=== PATIENT | male | born 1980 | race Caucasian/White ===

== ENCOUNTER 2016-10-19 15:00 | Emergency (ER) | payer MEDICAID ==
[2016-10-19] MEDS ORDERED: MAGNEVIST 20ML IV ONE (15:01)
[2016-10-19] MEDS ORDERED: Meclizine HCl 25 MG TAB ONE (15:51)
[2016-10-19] MEDS ORDERED: SODIUM CHLORIDE 0.9% 1,000 ML ONE (15:51)
[2016-10-19] MEDS ORDERED: DEXAMETHASONE 4 MG/ML VIAL ONE (16:14)
== END 2016-10-19 18:45 | disposition other institution (70) ==
LOC: ER 15:00
CPT/HCPCS: 36415; 70450; 70553; 71020; 80053; 85025; 93005; 96360; 96361; 96372

== ENCOUNTER 2016-10-20 19:47 | Emergency (ER) | payer MEDICAID ==
[2016-10-21] MEDS ORDERED: ONDANSETRON 4 MG VIAL ONE (02:09)
[2016-10-21] MEDS ORDERED: SODIUM CHLORIDE 0.9% 1,000 ML ONE (02:09)
== END 2016-10-21 03:05 | disposition other institution (70) ==
LOC: ER 19:47
CPT/HCPCS: 96361; 96374